=== PATIENT | female | born 1980 | race Caucasian/White ===

== ENCOUNTER 2018-10-12 17:12 | Emergency (ER) | payer BC, MEDICAID ==
[~2018-10-12] VITALS: Ht 157.5 cm; Wt 95.0 kg
[~2018-10-12 17:12] MED LIST: FLEXERIL; IBUP-1542 PO; METAMUCIL; OMEPRAZOLE; TRAM50TA2 PO
[2018-10-12 17:15] VITALS: BP 119/72; PULSE 62; RESP 18; Ht 157.5 cm; Wt 95.0 kg
--- NOTE | 2018-10-12 17:25 | EN ---
Date/Time of Note Date/Time of Note DATE: 10/12/18 TIME: 17:23 ER Progress Note Medical screening [id number] female presents with fatigue, right flank pain. She was treated with Cipro by primary doctor last week. She was also noted to have mild anemia, elevated ESR and NATY by report. She has rheumatology referral pending. Okay for ED to for recheck of urine and and evaluation of flank pain and fatigue. LIS LEVY MD Oct 12, 2018 17:25
[2018-10-12] MEDS ORDERED: KETOROLAC 30 MG INJ IM STA (18:02)
--- NOTE | 2018-10-12 18:20 | ERD ---
ER Documentation Chief Complaint Chief Complaint lower back pain for over a week HPI 37-year-old female with no reported past medical history presents with complaint of lower back pain over the past week. Describes intermittent sharp lower back pain that is worse on the right side. She otherwise denies recent fall or trauma, saddle anesthesia, urinary or bowel incontinence, lower extremity paresthesias or weakness, other joint pain, bleeding symptoms. Patient recently treated for kidney infection with Cipro and completed a course recently. Also with complaint of generalized weakness patient saw her PMD who stated that she was mildly anemic, elevated ESR and NATY, all other labs unremarkable. She has upcoming appointment with rheumatology. Family history of autoimmune disorders she denies. Was to follow-up with her PMD today but states that she can make to drive. She otherwise denies chest pain, shortness of breath, dyspnea, fevers, chills, nausea, vomiting, diarrhea, abdominal pain, urinary symptoms. Has not taken anything for pain. ROS All systems reviewed and are negative except as per history of present illness. Medications Home Meds Active Scripts Tramadol HCl (Tramadol HCl) 50 Mg Tablet, 50 MG PO Q4 PRN for PAIN, #20 TAB Prov:MERCEDES SEVILLA PA-C 10/12/18 Ibuprofen* (Motrin*) 600 Mg Tab, 600 MG PO Q6, #30 TAB Prov:MERCEDES SEVILLA PA-C 10/12/18 Physical Exam Vitals Vital Signs Date Temp Pulse Resp B/P (MAP) Pulse Ox O2 O2 Flow FiO2 Time Delivery Rate 10/12/18 98.4 62 18 119/72 99 17:15 (88) Physical Exam Const: No acute distress Head: Atraumatic Eyes: Normal Conjunctiva ENT: Normal External Ears, Nose and Mouth. Neck: Full range of motion. No meningismus. Resp: Clear to auscultation bilaterally Cardio: Regular rate and rhythm, no murmurs Abd: Soft, non tender, non distended. Normal bowel sounds Skin: No petechiae or rashes Back: No midline tenderness, mild tenderness to right flank, no bruising or signs of injury, patient takes multiple steps in examination room with normal gait, 5 out of 5 strength throughout lower extremities bilaterally, SI LT throughout Ext: No cyanosis, or edema Neur: Awake and alert Psych: Normal Mood and Affect Results 24 hrs Laboratory Tests Test 10/12/18 18:31 POC Beta HCG, Qualitative NEGATIVE Current Medications Medications Dose Sig/Siva Start Time Status Last (Trade) Ordered Route PRN Stop Time Admin Dose Reason Admin Ketorolac 30 mg ONCE STAT 10/12/18 DC Tromethamine IM 18:02 (Toradol) 10/12/18 18:03 10 mg ONCE ONCE 10/12/18 DC Dexamethasone IM 18:30 (Decadron) 10/12/18 18:31 Procedures/MDM 37-year-old female presents with complaint of generalized weakness and lower back pain. I have low suspicion for any acute process warranting further emergent care or work-up. Low suspicion for acute cord compression or cauda equina at this time, given presentation and symptoms, including epidural abscess or hematoma. Patient has no history of malignancy, active or distant history. Patient has no unexplained weight loss. No recent fevers, rigors, malaise, or recent infection. No history of IVDU or skin-popping. Patient does not have any history concerning for saddle anesthesia/perianal sensory loss or complaining of decreased rectal tone. Patient does not have urinary retention or inability to control urine from overflow. Patient has no tenderness overlying spinous process. Patient has no focal weakness on examination. Course: Toradol and single dose of Decadron given Patient advised to follow-up with PMD for continued care as planned, patient has upcoming appointment with rheumatology, advised to keep this appointment given reported recent labs findings of increased ESR and NATY, continue work-up to rule out autoimmune disorders We will discharge with NSAID pain medications Given exam and history, low suspicion for cord compression, cauda equina, epidural abscess/hematoma. Distally neurovascularly intact. Query likely musculoskeletal component. Discussed pain control,and follow up with PMD. Cautious return precautions discussed w/ full understanding DISPOSITION PLAN: We discussed follow up with the patient's primary care doctor within 24 to 48 hours. Patient counseled regarding my diagnostic impression and care plan. Prior to discharge all questions answered. Pt agrees with treatment plan and understands strict return precautions. Precautionary instructions provided including instructions to return to the ER if not improving or for any worsening or changing symptoms or concerns. Disclaimer: Inadvertent spelling and grammatical errors are likely due to EHR/dictation software use and do not reflect on the overall quality of patient care. Also, please note that the electronic time recorded on this note does not necessarily reflect the actual time of the patient encounter. Departure Diagnosis: Primary Impression: Back pain Condition: Stable Patient Instructions: Back Pain (Acute Or Chronic) Referrals: [facility] YOU HAVE RECEIVED A MEDICAL SCREENING EXAM AND THE RESULTS INDICATE THAT YOU DO NOT HAVE A CONDITION THAT REQUIRES URGENT TREATMENT IN THE EMERGENCY DEPARTMENT. FURTHER EVALUATION AND TREATMENT OF YOUR CONDITION CAN WAIT UNTIL YOU ARE SEEN IN YOUR DOCTORS OFFICE WITHIN THE NEXT 1-2 DAYS. IT IS YOUR RESPONSIBILITY TO MAKE AN APPOINTMENT FOR FOLOW-UP CARE. IF YOU HAVE A PRIMARY DOCTOR --you should call your primary doctor and schedule an appointment IF YOU DO NOT HAVE A PRIMARY DOCTOR YOU CAN CALL OUR PHYSICIAN REFERRAL HOTLINE AT IF YOU CAN NOT AFFORD TO SEE A PHYSICIAN YOU CAN CHOSE FROM THE FOLLOWING [facility] [address] [facility]. [facility] [address] [facility]. [facility] [address] [facility] [facility] [address] [facility]. [facility] [address] [facility]. [facility]. [address] Additional Instructions: Call your primary care doctor TOMORROW for an appointment during the next 2-3 days.See the doctor sooner or return here if your condition worsens before your appointment time. MERCEDES SEVILLA PA-C Oct 12, 2018 18:20
[2018-10-12] MEDS ORDERED: DEXAMETHASONE 10 MG/ML 1 ML INJ IM ONE (18:30)
== END 2018-10-12 18:49 | disposition home or self-care (01) ==
LOC: FTE 17:12
DX: M54.5 Low back pain (principal)
CPT/HCPCS: 81025; 96372; 99284; J1100; J1885

== ENCOUNTER 2018-11-05 12:08 | Day surgery (SDC) | payer BC ==
[~2018-11-05] VITALS: Ht 165.1 cm; Wt 93.6 kg
[2018-11-05 13:45] VITALS: BP 100/54; PULSE 61; RESP 16
--- NOTE | 2018-11-05 14:10 | PREAC ---
Date/Time of Note Date/Time of Note DATE: 11/05/18 TIME: 14:08 Anesthesia Eval and Record Evaluation Time Pre-Procedure Interview DATE: 11/05/18 TIME: 14:08 Age 37 Sex female NPO: 8 hrs Preoperative diagnosis egd colonoscopy for abdo pain Planned procedure egd colonoscopy Past Medical History Past Medical History: Includes GI: Obesity, Morbid obesity Surgery & Anesthesia Issues No known issue Meds Anticoagulation: No Beta Nithin within 24 hr: No Reason Beta Nithin not given: Pt. not on B-Nithin Active Scripts Ibuprofen* (Motrin*) 600 Mg Tab, 600 MG PO Q6, #30 TAB Prov:MERCEDES SEVILLA PA-C 10/12/18 Reported Medications [Flexeril] No Conflict Check 11/05/18 [Metamucil] No Conflict Check 11/05/18 [Omeprazole] No Conflict Check 11/05/18 Discontinued Scripts Tramadol HCl (Tramadol HCl) 50 Mg Tablet, 50 MG PO Q4 PRN for PAIN, #20 TAB Prov:MERCEDES SEVILLA PA-C 10/12/18 Meds reviewed: Yes Allergies Coded Allergies: clarithromycin (Verified Allergy, Mild, NAUSEA,VOMITING, 11/05/18) metronidazole (Verified Allergy, Mild, NAUSEA,VOMITING, 11/05/18) Allergies Reviewed: Yes Labs/Studies Labs Reviewed: Reviewed by anesthesiologist test: Negative Pre-procedure Exam Airway: Adequate mouth opening Mallampati: Mallampati II Teeth: Normal Lung: Normal Heart: Normal ASA Physical Status ASA physical status: 2 Emergency: None Planned Anesthetic General/MAC: MAC Pre-operative Attestations Prior to commencing anesthesia and surgery, the patient was re-evaluated, there was verification of: *The patient's identity *The results of appropriate recent lab work and preoperative vital signs *The above evaluation not changing prior to induction *Anesthetic plan, risk benefits, alternative and complications discussed with patient/family; questions answered; patient/family understands, accepts and wishes to proceed. TERESITA ALVARADO MD Nov 05, 2018 14:10
[2018-11-05] MEDS ORDERED: ALBUTEROL 0.083% (NEB) 2.5 MG/3 ML AMP HHN PRN (14:30)
[2018-11-05] MEDS ORDERED: HYDROmorphONE 1 MG/5 ML IV SYRINGE IV PRN ×3 (14:30)
[2018-11-05] MEDS ORDERED: FENTAnyl 50 MCG/ML VIAL IV PRN ×3 (14:30)
[2018-11-05] MEDS ORDERED: TRIMETHOBENZAMIDE 100 MG/ML VIAL IM PRN (14:30)
[2018-11-05] MEDS ORDERED: ONDANSETRON 4 MG INJ IV PRN (14:30)
[2018-11-05] MEDS ORDERED: LABETALOL HCL 20MG INJ IV PRN (14:30)
[2018-11-05] MEDS ORDERED: EPHEDrine 25 MG/5 ML SYG IV PRN (14:30)
[2018-11-05] MEDS ORDERED: OXYCODONE/ACETAMINOPHEN (5/325) TAB PO PRN ×2 (14:30)
[2018-11-05] MEDS ORDERED: IPRATROPIUM (NEB) 0.5 MG/2.5 ML AMP HHN PRN (14:30)
[2018-11-05] MEDS ORDERED: DIPHENHYDRAMINE 50 MG INJ IV PRN (14:30)
[2018-11-05] MEDS ORDERED: MIDAZOLAM 1 MG/ML 2 ML INJ IV PRN (14:30)
[2018-11-05] MEDS ORDERED: MEPERIDINE 25 MG INJ IV PRN (14:30)
[2018-11-05] MEDS ORDERED: hydrALAzine 20 MG INJ IV PRN (14:30)
[2018-11-05] MEDS ORDERED: ETOMIDATE 20 MG INJ ONE (15:23)
[2018-11-05] MEDS ORDERED: PROPOFOL 20 ML ONE (15:23)
--- NOTE | 2018-11-05 17:12 | PAC ---
Date/Time of Note Date/Time of Note DATE: 11/05/18 TIME: 17:12 Post-Anesthesia Notes Post-Anesthesia Note Last documented vital signs Vital Signs Date Temp Pulse Resp B/P (MAP) Pulse Ox O2 O2 Flow FiO2 Time Delivery Rate 11/05/18 98.2 61 16 100/54 98 Room Air 13:45 (69) Activity: WNL Respiratory function: WNL Cardiovascular function: WNL Mental status: Baseline Pain reasonably controlled: Yes Hydration appropriate: Yes Nausea/Vomiting absent: Yes TERESITA ALVARADO MD Nov 05, 2018 17:12
== END 2018-11-05 17:45 | disposition home or self-care (01) ==
LOC: GIL 12:08
PROVIDERS: ATTEND Internal Medicine Gastroenterology
DX: R19.4 Change in bowel habit (principal); K64.8 Other hemorrhoids; K29.50 Unspecified chronic gastritis without bleeding
CPT/HCPCS: 43239; 45380; 84703; 88305; 88312; Z7610